=== PATIENT | female | born 2000 | race American Indian/Alaskan Native ===

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

== ENCOUNTER 2020-05-23 21:59 | Emergency (ER) | payer SELFPAY ==
[2020-05-23] MEDS ORDERED: IBUPROFEN 600 MG TAB PO ONE (22:42)
[2020-05-23] MEDS ORDERED: ACETAMINOPHEN 500 MG TAB PO ONE (22:42)
[2020-05-23 22:45] VITALS: BP 108/65
--- NOTE | 2020-05-23 23:21 | XRay Report ---
LEFT FINGER, 3 VIEWS INDICATION / CLINICAL INFORMATION: Injury, hit finger at work. COMPARISON: None available. FINDINGS: There is a minimally displaced transverse fracture through the proximal aspect of the distal phalanx of the middle finger. Transverse fractures involving the proximal diaphysis and does not appear to be intra-articular. No additional fractures. Soft tissues are grossly intact otherwise and mild edema. IMPRESSION: Minimally displaced transverse nonintra-articular fracture involving the proximal diaphys eal region of the distal phalanx, middle finger. Signer Name: Mitra Hoang MD Signed: 05/23/2020 11:16 PM Workstation Name: [id number]
--- NOTE | 2020-05-23 23:57 | Emergency Department Report ---
ED Upper Extremity Inj HPI - General Chief Complaint: Extremity Injury, Upper Stated Complaint: LEFT FINGER INJURY/SWOLLEN Source: patient Mode of arrival: Ambulatory Limitations: No Limitations - History of Present Illness Initial Comments: Patient is a nulliparous 20-year-old -[place] female with no past medical history presents to the ED with complaint of acute onset persistent painful swollen distal left middle finger after she tripped and fell down at work 24 hours ago. Patient states that 2 colleagues at work were fighting and fell down in front of her as she moved about and in the process tripped on those fighting and fell down landing on her left hand in a hyperextended position of the distal left middle finger. Patient states that the pain has been persistent and constant since the accident 24 hours ago. Patient denies head or neck injuries, back pain, hip pain, nausea and vomiting, chest pain or shortness of breath, syncope, dizziness, seizures or numbness and tingling or weakness of left hand. MD Complaint: Injury to:: left, finger (middle finger) -: Sudden, hour(s) (24) Other Extremity Injury: Hand: Left (left middle finger ) Other Injuries: none Handedness: left Place: home Severity scale (0 -10): 7 Improves With: movement Worsens With: none Context: fall, direct blow (Distalk left middle finger pain, swelling), injury Associated Symptoms: denies other symptoms. denies: weakness, numbness, neck pain, suspects foreign body, nausea/vomiting - Related Data Previous Rx's Medication Instructions Recorded Last Taken Type Ibuprofen [Motrin 600 MG tab] 600 mg PO Q6H PRN #20 tablet 10/17/16 Unknown Rx Nitrofurantoin [place]/M-Cryst 100 mg PO Q12HR #14 capsule 10/17/16 Unknown Rx [Macrobid CAP] Cyclobenzaprine [Flexeril] 10 mg PO QHS PRN #12 tablet 05/24/20 Unknown Rx Ibuprofen [Motrin] 600 mg PO Q8H PRN #30 tablet 05/24/20 Unknown Rx Allergies Allergy/AdvReac Type Severity Reaction Status Date / Time No Known Allergies Allergy Verified 10/17/16 19:18 ED Review of Systems ROS: Stated complaint: LEFT FINGER INJURY/SWOLLEN Other details as noted in HPI Constitutional: denies: chills, fever Eyes: denies: eye pain, eye discharge, vision change ENT: denies: ear pain, throat pain Respiratory: denies: cough, shortness of breath, wheezing Cardiovascular: denies: chest pain, palpitations Endocrine: no symptoms reported Gastrointestinal: denies: abdominal pain, nausea, diarrhea Genitourinary: denies: urgency, dysuria, discharge Musculoskeletal: joint swelling (distal left middle finger), arthralgia (distal left middle finger pain and swelling). denies: back pain Skin: denies: rash, lesions Neurological: denies: headache, weakness, paresthesias Psychiatric: denies: anxiety, depression Hematological/Lymphatic: denies: easy bleeding, easy bruising ED Past Medical Hx - Past Medical History Previous Medical History?: Yes Hx Asthma: Yes - Surgical History Past Surgical History?: No - Social History Smoking Status: Never Smoker Substance Use Type: None - Medications Home Medications: Home Medications Medication Instructions Recorded Confirmed Last Taken Type Ibuprofen [Motrin 600 MG tab] 600 mg PO Q6H PRN #20 tablet 10/17/16 Unknown Rx Nitrofurantoin [place]/M-Cryst 100 mg PO Q12HR #14 capsule 10/17/16 Unknown Rx [Macrobid CAP] Cyclobenzaprine [Flexeril] 10 mg PO QHS PRN #12 tablet 05/24/20 Unknown Rx Ibuprofen [Motrin] 600 mg PO Q8H PRN #30 tablet 05/24/20 Unknown Rx ED Physical Exam - General Limitations: No Limitations General appearance: alert, in no apparent distress - Head Head exam: Present: atraumatic, normocephalic, normal inspection - Eye Eye exam: Present: normal appearance, PERRL, EOMI Pupils: Present: normal accommodation - ENT ENT exam: Present: normal exam, normal orophraynx, mucous membranes moist, TM's normal bilaterally, normal external ear exam - Neck Neck exam: Present: normal inspection, full ROM - Respiratory Respiratory exam: Present: normal lung sounds bilaterally. Absent: respiratory distress, wheezes, rales, stridor, chest wall tenderness, accessory muscle use, decreased breath sounds, prolonged expiratory - Cardiovascular Cardiovascular Exam: Present: regular rate, normal rhythm, normal heart sounds. Absent: systolic murmur, diastolic murmur, rubs, gallop - GI/Abdominal GI/Abdominal exam: Present: soft, normal bowel sounds. Absent: distended, tenderness, guarding, rebound, hyperactive bowel sounds, hypoactive bowel sounds, organomegaly - Extremities Exam Extremities exam: Present: normal inspection, full ROM, tenderness (Palpable distal left middle finger tenderness with limited ROM due to pain, mild swelling), normal capillary refill, joint swelling (distal left middle finger swelling) - Back Exam Back exam: Present: normal inspection, full ROM. Absent: tenderness, CVA tenderness (R), muscle spasm, paraspinal tenderness, vertebral tenderness - Neurological Exam Neurological exam: Present: alert, oriented X3, CN II-XII intact, normal gait, reflexes normal - Psychiatric Psychiatric exam: Present: normal affect, normal mood - Skin Skin exam: Present: warm, dry, intact, normal color. Absent: rash ED Course Vital Signs 05/23/20 05/23/20 22:39 23:01 Temperature 98.1 F Pulse Rate 78 Respiratory 16 18 Rate Blood Pressure 108/65 O2 Sat by Pulse 100 Oximetry ED Medical Decision Making - Radiology Data Radiology results: report reviewed, image reviewed Findings [facility] [address] [place] [address] XRay Report Signed Patient: WINNIE CROWDER MR#: [id number] : 2000 Acct:[id number] Age/Sex: 20 / F ADM Date: 05/23/20 Loc: ED Attending Dr: Ordering Physician: DANIEL DHILLON Date of Service: 05/23/20 Procedure(s): XR finger(s) 2+V LT Accession Number(s): [id number] cc: DANIEL DHILLON Fluoro Time In Minutes: LEFT FINGER, 3 VIEWS INDICATION / CLINICAL INFORMATION: Injury, hit finger at work. COMPARISON: None available. FINDINGS: There is a minimally displaced transverse fracture through the proximal aspect of the distal phalanx of the middle finger. Transverse fractures involving the proximal diaphysis and does not appear to be intra-articular. No additional fractures. Soft tissues are grossly intact otherwise and mild edema. IMPRESSION: Minimally displaced transverse nonintra-articular fracture involving the proximal diaphyseal region of the distal phalanx, middle finger. Signer Name: Mitra Hoang MD Signed: 05/23/2020 11:16 PM Workstation Name: [id number] Transcribed By: JR Dictated By: Mitra Hoang MD Electronically Authenticated By: Mitra Hoang MD Signed Date/Time: 05/23/202315 DD/ 13 TD/TT: - Medical Decision Making This is a nulliparous 20-year-old -[place] female with no past medical history presents to the ED with complaint of acute onset persistent painful swollen distal left middle finger after she tripped and fell down at work 24 hours ago. Patient states that 2 colleagues at work were fighting and fell down in front of her as she moved about and in the process tripped on those fighting and fell down landing on her left hand in a hyperextended position of the distal left middle finger. Patient states that the pain has been persistent and constant since the accident 24 hours ago. In the ED, patient is alert and oriented x3 and is not in distress. Patient was treated for pain in the ED and left middle finger x-ray showed a minimally displaced transverse nonintra- articular fracture involving the proximal diaphyseal region of the distal phalanx, middle finger. The left middle fingers were splinted with a finger splint and the patient will discharge home on pain medications and given a referral to a local orthopedic surgeon Dr. Monteiro on for further evaluation. Patient was advised to contact Dr. Monteiro's office first thing in the morning today May 24, 2020 to schedule a follow-up appointment. Patient was advised return to the ED immediately if symptoms get worse. - Differential Diagnosis Finger fracture; Finger sprain; Hand contusion; Muscle strain Critical care attestation.: If time is entered above; I have spent that time in minutes in the direct care of this critically ill patient, excluding procedure time. ED Disposition Clinical Impression: Displaced fracture of distal phalanx of left middle finger, initial encounter for open fracture Contusion of left hand including fingers Qualifiers: Encounter type: initial encounter Qualified Code(s): S60.222A - Contusion of left hand, initial encounter; S60.00XA - Contusion of unspecified finger without damage to nail, initial encounter Disposition: TO HOME OR SELFCARE Is pt being admited?: No Does the pt Need Aspirin: No Condition: Stable Instructions: Finger Fracture, Adult, [id number], Hand Contusion, [id number] Additional Instructions: Take medication with food, drink plenty of fluids and follow up with the Orthopedic surgeon in 24-48 hours for reevaluation. Return to the ED immediately if symptoms get worse Prescriptions: Cyclobenzaprine [Flexeril] 10 mg PO QHS PRN #12 tablet PRN Reason: Muscle Spasm Ibuprofen [Motrin] 600 mg PO Q8H PRN #30 tablet PRN Reason: Pain Referrals: ELLEN MONTEIRO MD [Referring] - [facility] Time of Disposition: 00:04 Print Language: MAURITIAN
== END 2020-05-24 00:18 | disposition home or self-care (01) ==
LOC: ED 21:59
DX: S62.633B Displaced fracture of distal phalanx of left middle finger, initial encounter for open fracture (principal); S60.222A Contusion of left hand, initial encounter; J45.909 Unspecified asthma, uncomplicated; Z79.899 Other long term (current) drug therapy; W17.89XA Other fall from one level to another, initial encounter; Y93.89 Activity, other specified; Y92.009 Unspecified place in unspecified non-institutional (private) residence as the place of occurrence of the external cause; Y99.8 Other external cause status